=== PATIENT | male | born 1965 | race Caucasian/White ===

== ENCOUNTER 2019-12-10 23:43 | Inpatient (IN) | payer BC ==
[~2019-12-10] VITALS: Ht 180.3 cm; Wt 110.7 kg
[2019-12-10 23:51] VITALS: Ht 180.3 cm; Wt 110.7 kg
[2019-12-11] MEDS ORDERED: COZAAR100 MG PO (01:41)
[2019-12-11 01:55] LABS: BASOPHIL % 1.8 % (0-2); PLATELET COUNT 335 x10^3mcL (130-400); RED CELL DISTRIBUTION WIDTH 12.9 % (11.5-14.5)
[2019-12-11 02:00] LABS: CARBON DIOXIDE 28.6 mmol/L (21-32); CHLORIDE SERUM 108 mmol/L (98-107); CREATININE SERUM 1.3 mg/dL (0.7-1.3); GFR1 > 60 mL/min; GLUCOSE SERUM 113 mg/dL (74-106); SODIUM SERUM 143 mmol/L (136-145)
[2019-12-11 03:14] LABS: CHOLESTEROL/HDL RATIO 4.6
[2019-12-11 04:22] VITALS: BP 159/93
[2019-12-11 04:50] LABS: microscopic required? NO
[2019-12-11 04:55] LABS: UA SPECIFIC GRAVITY 1.025 (1.005-1.035); urine erythrocyte NEGATIVE (NEGATIVE)
[2019-12-11 05:06] LABS: AMPHETAMINE QUAL UR NONE DETECTED (See below)
[2019-12-11 09:30] VITALS: BP 144/99
[2019-12-11 16:59] VITALS: BP 152/90
[2019-12-11 20:48] VITALS: BP 142/89
[2019-12-12 06:01] VITALS: BP 162/97
[2019-12-12 06:31] LABS: PLATELET COUNT 327 x10^3mcL (130-400)
[2019-12-12 06:57] LABS: CALCIUM 8.7 mg/dL (8.5-10.1); CARBON DIOXIDE 28.2 mmol/L (21-32); CHLORIDE SERUM 103 mmol/L (98-107); CREATININE SERUM 1.2 mg/dL (0.7-1.3); GFR1 > 60 mL/min; GLUCOSE SERUM 112 mg/dL (74-106); MAGNESIUM 2.1 mg/dL (1.8-2.4); PHOSPHOROUS 3.6 mg/dL (2.5-4.9); POTASSIUM SERUM 3.8 mmol/L (3.5-5.1); SODIUM SERUM 140 mmol/L (136-145)
[2019-12-12 08:47] VITALS: BP 148/99
[2019-12-12 12:17] VITALS: BP 148/95
[2019-12-12 16:17] VITALS: BP 155/95
[2019-12-12 21:59] VITALS: BP 163/95
[2019-12-13 05:34] VITALS: BP 150/96
[2019-12-13 06:35] LABS: BASOPHIL % 1.1 % (0-2); PLATELET COUNT 336 x10^3mcL (130-400); RED CELL DISTRIBUTION WIDTH 13.2 % (11.5-14.5)
[2019-12-13 06:43] LABS: CALCIUM 9.1 mg/dL (8.5-10.1); CARBON DIOXIDE 25.6 mmol/L (21-32); CHLORIDE SERUM 103 mmol/L (98-107); CREATININE SERUM 1.2 mg/dL (0.7-1.3); GFR1 > 60 mL/min; GLUCOSE SERUM 108 mg/dL (74-106); MAGNESIUM 2.3 mg/dL (1.8-2.4); POTASSIUM SERUM 3.6 mmol/L (3.5-5.1); SODIUM SERUM 139 mmol/L (136-145)
[2019-12-13 09:13] VITALS: BP 129/93
[2019-12-13 17:27] VITALS: BP 123/69
[2019-12-13 21:40] VITALS: BP 150/94
[2019-12-14 05:51] VITALS: BP 119/76
[2019-12-14 06:49] LABS: BASOPHIL % 0.9 % (0-2); PLATELET COUNT 312 x10^3mcL (130-400); RED CELL DISTRIBUTION WIDTH 12.9 % (11.5-14.5)
[2019-12-14 07:16] LABS: CALCIUM 8.7 mg/dL (8.5-10.1); CARBON DIOXIDE 25.4 mmol/L (21-32); CHLORIDE SERUM 102 mmol/L (98-107); CREATININE SERUM 1.2 mg/dL (0.7-1.3); GFR1 > 60 mL/min; GLUCOSE SERUM 106 mg/dL (74-106); SODIUM SERUM 138 mmol/L (136-145)
[2019-12-14 09:05] VITALS: BP 112/78
[2019-12-14 18:05] VITALS: BP 133/88
[2019-12-14 20:43] VITALS: BP 150/98
[2019-12-14 21:28] VITALS: BP 132/87
[2019-12-15 05:42] VITALS: BP 135/84
[2019-12-15 06:42] LABS: BASOPHIL % 0.6 % (0-2); PLATELET COUNT 276 x10^3mcL (130-400); RED CELL DISTRIBUTION WIDTH 12.8 % (11.5-14.5)
[2019-12-15 07:10] LABS: CALCIUM 9.4 mg/dL (8.5-10.1); CARBON DIOXIDE 26.5 mmol/L (21-32); CREATININE SERUM 1.4 mg/dL (0.7-1.3); POTASSIUM SERUM 4.2 mmol/L (3.5-5.1)
[2019-12-15 08:34] VITALS: BP 136/88
[2019-12-15 16:31] VITALS: BP 145/88
[2019-12-15 20:36] VITALS: BP 139/94
[2019-12-16 05:02] VITALS: BP 117/80
[2019-12-16 08:14] VITALS: BP 141/79
[2019-12-16 11:02] LABS: BASOPHIL % 0.1 % (0-2); PLATELET COUNT 259 x10^3mcL (130-400)
[2019-12-16 12:08] VITALS: BP 130/82
[2019-12-16 16:21] VITALS: BP 138/85
[2019-12-16 19:30] VITALS: BP 134/82
[2019-12-17 06:06] VITALS: BP 120/79
[2019-12-17 06:34] LABS: BASOPHIL % 0.7 % (0-2); PLATELET COUNT 263 x10^3mcL (130-400); RED CELL DISTRIBUTION WIDTH 13.1 % (11.5-14.5)
[2019-12-17 07:06] LABS: CALCIUM 8.4 mg/dL (8.5-10.1); CARBON DIOXIDE 25.6 mmol/L (21-32); CHLORIDE SERUM 105 mmol/L (98-107); CREATININE SERUM 1.1 mg/dL (0.7-1.3); GFR1 > 60 mL/min; GLUCOSE SERUM 100 mg/dL (74-106); POTASSIUM SERUM 4.2 mmol/L (3.5-5.1); SODIUM SERUM 141 mmol/L (136-145)
[2019-12-17 08:12] VITALS: BP 129/75
[2019-12-17] MEDS ORDERED: XARELTO15 M1 PO (08:56)
[2019-12-17] MEDS ORDERED: NORCO1 TA2 PO (08:57)
[2019-12-17 09:23] VITALS: BP 129/75
== END 2019-12-17 13:08 | disposition home or self-care (01) | DRG 493 ==
LOC: ED 23:43 → MU 12-11 01:57
PROVIDERS: Emergency Medicine; Internal Medicine; Radiology Diagnostic Radiology; ADMIT Internal Medicine
PROC: 06H03DZ Insertion of Intraluminal Device into Inferior Vena Cava, Percutaneous Approach (ICD-10-PCS; principal; 2019-12-13 12:00)
PROC: 0QSK04Z Reposition Left Fibula with Internal Fixation Device, Open Approach (ICD-10-PCS; 2019-12-15)
DX: S82.65XA Nondisplaced fracture of lateral malleolus of left fibula, initial encounter for closed fracture (principal); I82.402 Acute embolism and thrombosis of unspecified deep veins of left lower extremity; I10 Essential (primary) hypertension; M10.9 Gout, unspecified; W00.0XXA Fall on same level due to ice and snow, initial encounter; Z91.041 Radiographic dye allergy status; Y93.89 Activity, other specified; Y92.89 Other specified places as the place of occurrence of the external cause; Y99.8 Other external cause status; Z79.899 Other long term (current) drug therapy
CPT/HCPCS: 36005; 83880; 94150; C1769; C1880; C1887; C1894; G0378; J0360; J0690; J1200; J1644; J2001; J2250; J2270; J2405; J3010; J3490; J7030; J7040; Q0092; Q9967